=== PATIENT | male | born 1985 | race Caucasian/White ===

== ENCOUNTER 2016-12-19 02:57 | Emergency (ER) | payer MEDICAID ==
[~2016-12-19] VITALS: Ht 182.9 cm; Wt 83.9 kg
[2016-12-19 03:12] VITALS: BP 132/91
== END 2016-12-19 04:20 | disposition home or self-care (01) ==
LOC: ER 02:59
DX: K08.89 Other specified disorders of teeth and supporting structures (principal); Z88.0 Allergy status to penicillin

== ENCOUNTER 2021-04-04 13:51 | Emergency (ER) | payer MEDICAID, SELFPAY ==
[~2021-04-04] VITALS: Ht 180.3 cm; Wt 83.9 kg
[2021-04-04 13:52] VITALS: BP 147/84
== END 2021-04-04 18:40 | disposition left against medical advice (07) ==
LOC: ER 13:51
DX: U07.1 COVID-19 (principal); R06.02 Shortness of breath; Z53.21 Procedure and treatment not carried out due to patient leaving prior to being seen by health care provider
CPT/HCPCS: 71046

== ENCOUNTER → 2021-04-08 | Emergency (ER) | payer SELFPAY | END | disposition left against medical advice (07) | LOC: ER 01:18 | DX: U07.1 COVID-19 (principal); Z53.21 Procedure and treatment not carried out due to patient leaving prior to being seen by health care provider ==